=== PATIENT | male | born 1985 | race Caucasian/White ===

== ENCOUNTER 2018-02-15 05:02 | Emergency (ER) | payer BC ==
[~2018-02-15] VITALS: Ht 185.4 cm; Wt 86.3 kg
[~2018-02-15 05:02] MED LIST: SUMA100T PO
[2018-02-15 05:16] VITALS: BP 134/77
[2018-02-15] MEDS ORDERED: ketorolac trometh inj. 60 MG/2 ML VIAL IM ONE (07:05)
[2018-02-15] MEDS ORDERED: cyclobenzaprine 10mg tablet PO ONE (07:05)
[2018-02-15] MEDS ORDERED: CYCL-1 PO (07:07)
[2018-02-15] MEDS ORDERED: HYDR-569 PO (07:07)
[2018-02-15] MEDS ORDERED: NAPR-56 PO (07:07)
== END 2018-02-15 07:19 | disposition home or self-care (01) ==
LOC: ER 05:03
DX: M54.14 Radiculopathy, thoracic region (principal); M54.6 Pain in thoracic spine; Z79.899 Other long term (current) drug therapy
CPT/HCPCS: 73030; 96372; 99284; J1885

== ENCOUNTER 2021-08-02 10:33 | Emergency (ER) | payer BC ==
[~2021-08-02] VITALS: Ht 185.4 cm; Wt 85.5 kg
[~2021-08-02 10:33] MED LIST changes: +CYCL-1 PO; +HYDR-4383 PO
[2021-08-02 12:18] VITALS: BP 114/69
[2021-08-02 13:35] LABS: D-DIMER < 0.19 MG/L FEU (0-0.50)
== END 2021-08-02 13:59 | disposition home or self-care (01) ==
LOC: ER 10:35
DX: M94.0 Chondrocostal junction syndrome [Tietze] (principal)
CPT/HCPCS: 36415; 71045; 84484; 85379; 93005; 99285

== ENCOUNTER 2025-01-23 20:22 | Inpatient (IN) | payer BC ==
[~2025-01-23] VITALS: Ht 185.4 cm; Wt 90.0 kg
--- NOTE | 2025-01-23 20:53 | Physician Documentation ---
History of Present Illness ~ Chief Complaint: Heat Related Stated Complaint: HEAT RELATED Time Seen by MD: 20:53 OK to notify your PCP?: Yes Primary Medical Doctor: NONE Source: patient Mode of Arrival: POV Exam Limitations: no limitations HPI This is a very pleasant 39-year-old gentleman, generally healthy, who comes in for evaluation of potential heat exertion. He states that he had played pickleball all day in 100 degree weather, he did treat potential dehydration by drinking at gentleman on warfarin gal of electrolytes. He developed severe muscle cramping, generalized weakness and discomfort. The particular palliating or aggravating factors. He went home and attempted to treat it by drinking pickle Tal without success. Denies any chest pain or difficulty breathing. No concern for tobacco, alcohol or illicit substances use Medication Reconciliation Allergies: Coded Allergies: No Known Allergies (Unverified , 08/02/21) Scheduled Hydrocodone/Acetaminophen ([place] 5-325 Tablet), 1 TAB PO Q12H PRN Sumatriptan Succinate (Imitrex*), 1 TABLET PO UD Scheduled PRN Cyclobenzaprine* (Cyclobenzaprine*), 1 TABLET PO BID PRN for muscle spasms Past Medical History Past Surgical History: noncontributory Alcohol Use: None Lives In: Home Review of Systems ROS 10 point review of systems was performed and unless noted above in HPI is negative for acute process/complaint. Physical Exam Vital Signs: Temperature: 96.1, Source: Temporal, Heart Rate: 84, Respiratory Rate: 20, BP: 110/80, Pulse Oximetry: 98, Weight: 90.040 Oxygen Flow Rate: 0 Physical Exam GENERAL: Awake, alert, oriented, GCS 15, uncomfortable and diaphoretic appearing, answers questions, follows commands appropriately. Examined in bed 10. HEENT: Atraumatic, normocephalic, pupils equal, extraocular muscles intact, sclerae anicteric, mucus membranes moist, oropharynx is clear, no stridor. NECK: supple, full active range of motion, trachea midline, no thyromegaly, no lymphadenopathy, no JVD. CARDIOVASCULAR: regular rate/rhythm, no murmurs/gallops/rubs, Pulses are 2+ in all extremities and symmetric. Capillary refill less than 2 seconds. PULMONARY: Nonlabored, good air movement ,no respiratory distress, speaking in full sentences, clear to auscultation bilaterally, no wheezing, no ronchi, no rales, no accessory muscle use. GASTROINTESTINAL: Soft, non-tender, non-distended, normal active bowel sounds, no organomegaly, no pulsatile masses, no CVA tenderness. NEUROLOGIC: Lucid with normal mental status. Normal facial symmetry. Moves all extremities symmetrically and with purpose. No truncal ataxia. Speech is fluid without evidence of dysarthria or aphasia, no focal deficits appreciated. MUSCULOSKELETAL: There is full range of motion of all extremities. There is no joint pain or joint swelling or joint erythema. There is no muscle pain or tenderness or swelling. EXTREMITIES: warm, well-perfused, no cyanosis, no clubbing, no edema, no acute deformities. Skin: warm, dry, no rashes or lesions, no jaundice, no petechiae orpurpura. No ecchymosis. PSYCHIATRIC: Normal affect, normal insight, normal concentration. Focused exam: [] Progress Results/Orders Results/Orders Orders - KYRIE MANCIA DO Calcium Gluc 1gm/50ml Nacl,Iso (Calcium (01/23/25 22:10) * Rt Notification Q1H (01/23/25 22:07) Completed Orders - KYRIE MANCIA DO CK (01/23/25 20:53) PHOS (01/23/25 20:53) MG (01/23/25 20:53) Normal Saline 1000ml (Sodium Chloride 10 (01/23/25 20:55) Hs Troponin I W Calculations (01/23/25 20:53) CMP (01/23/25 20:53) Electrocardiogram (01/23/25 ) Normal Saline 1000ml (Sodium Chloride 10 (01/23/25 21:35) Insulin Regular, Human (Humulin R 10 Uni (01/23/25 22:10) Dextrose 50%-Water (Dextrose 50%-Water S (01/23/25 22:10) Sodium Zirconium Cyclosilicate (Lokelma (01/23/25 22:10) Albuterol 2.5mg/3ml Nebule (Proventil 2. (01/23/25 22:10) K (01/23/25 22:07) Sodium Zirconium Cyclosilicate (Lokelma (01/23/25 22:40) Cbc/Diff (01/23/25 22:52) BMP (01/23/25 22:56) CK (01/23/25 22:56) MG (01/23/25 22:57) PHOS (01/23/25 22:57) Normal Saline 1000ml (Sodium Chloride 10 (01/23/25 23:05) Medications Received in ER Medications (Trade) Dose Ordered Sig/Nadine Route PRN Reason Start Time Stop Time Status Last Admin Dose Admin (sodium chloride 1000ml IV soln) 1,000 ml ONCE ONCE IVB 01/23/25 20:55 01/23/25 20:56 DC 01/23/25 21:02 1,000 ML Sodium Chloride 1,000 ml @ 1,000 mls/hr ONCE ONCE IV 01/23/25 21:35 01/23/25 22:34 DC 01/23/25 21:39 1,000 MLS/HR Calcium Gluconate 50 ml @ 500 mls/hr Q10MIN PRN IV abnormal EKG-elevated T waves 01/23/25 22:10 01/23/25 22:24 500 MLS/HR (HumuLIN R 10 units per 0.1 ML syringe) 10 units ONCE ONCE IV 01/23/25 22:10 01/23/25 22:11 DC 01/23/25 22:27 10 UNITS (dextrose 50%-water syringe) 50 ml ONCE ONCE IV 01/23/25 22:10 01/23/25 22:11 DC 01/23/25 22:29 50 ML (LOKELMA 10gm packets) 10 gm ONCE ONCE PO 01/23/25 22:10 01/23/25 22:11 DC 01/23/25 23:06 10 GM (Proventil 2.5 MG/3ML nebule) 10 mg ONCE ONCE NEB 01/23/25 22:10 01/23/25 22:11 DC 01/23/25 23:09 10 MG (sodium chloride 1000ml IV soln) 1,000 ml ONCE ONCE IVB 01/23/25 23:05 01/23/25 23:06 DC 01/23/25 23:05 1,000 ML Vital Signs 01/23/25 01/23/25 01/23/25 01/23/25 20:38 20:57 23:03 23:16 Temp 96.1 96.1 Pulse 84 77 74 75 Resp 20 22 16 16 B/P (MAP) 110/80 123/79 (94) 119/80 (93) Pulse Ox 98 100 99 100 O2 Flow Rate 0 0 0 01/23/25 01/24/25 01/24/25 23:21 00:16 00:23 Pulse 73 91 Resp 17 16 Pulse Ox 100 100 O2 Flow Rate 8.0 Laboratory Tests Test 01/23/25 20:54 01/23/25 22:17 01/23/25 22:57 CBC Comment Sodium Level 140 144 Potassium Level 8.1 *H 6.4 *H 5.1 Chloride Level 104 110 H Carbon Dioxide Level 25.1 29.6 Anion Gap 11 4 L Blood Urea Nitrogen 20 H 18 Creatinine 2.37 H 1.72 H Estimated GFR/1.73 m2 31 44 BUN/Creatinine Ratio 8.4 L 10.5 Glucose Level 112 H 94 Calcium Level 11.7 H 9.6 Phosphorus Level 0.7 *L 1.1 *L Magnesium Level 2.8 H 2.7 H Total Bilirubin 1.3 H Aspartate Amino Transf (AST/SGOT) 38 H Alanine Aminotransferase (ALT/SGPT) 51 Alkaline Phosphatase 76 Total Creatine Kinase 387 H 292 Troponin I High Sensitivity 58 Total Protein 9.5 H Albumin 6.3 H 4.4 Globulin 3.2 Albumin/Globulin Ratio 2.0 H Chemistry Comments White Blood Count 11.9 H Red Blood Count 5.73 Hemoglobin 17.9 Hematocrit 51.7 Mean Corpuscular Volume 90.2 Mean Corpuscular Hemoglobin 31.2 H Mean Corpuscular Hemoglobin Concent 34.6 Red Cell Distribution Width 13.4 Platelet Count 175 Mean Platelet Volume 9.2 Neutrophils (%) (Auto) 85.2 H Lymphocytes (%) (Auto) 6.9 L Monocytes (%) (Auto) 7.5 Eosinophils (%) (Auto) 0.2 Basophils (%) (Auto) 0.2 Neutrophils # (Auto) 10.2 H Lymphocytes # (Auto) 0.8 L Monocytes # (Auto) 0.9 Eosinophils # (Auto) 0.0 Basophils # (Auto) 0.0 EKG/XRAY/CT/US/VASC/MRI EKG : Additional Comment EKG was obtained and interpreted by myself shows sinus rhythm of 74, normal NC interval, narrow QRS, no QT prolongation, normal axis, markedly on tall peaked T-waves concerning for hyperkalemia. No STEMI Medical Decision Making Findings Facility Status: ED Holds, RME process The plan was discussed with the patient, who demonstrates clear understanding of the plan and is in agreement with the plan unless otherwise noted in the chart. All questions have been answered, all concerns were addressed unless otherwise documented. I was available throughout their ED stay for frequent reassessment and questions. Differential Diagnoses (considered and possible or likely): [Dehydration, electrolyte derangement, heat exhaustion, heat stroke, heat cramps, rhabdomyolysis, less likely ACS] ??Differential Diagnoses (considered and unlikely, not requiring evaluation currently): [No evidence of lateralizing signs to suspect a stroke] MDM Data Please see [facility] for the following: Independent Historians and external Records Review. Historian: [Patient] Independent Historians: ?[Non] Medication Management: [Reviewed medication list] Social History and determinants: [Reviewed] Please see the body of the note for the following: Any independent interpretations of ECG, imaging studies. All vitals signs/haemodynamics, ordered tests were independently reviewed and interpreted by myself. Nursing triage complaint and vitals reviewed, additional nursing notes were reviewed as available and I agree unless otherwise noted or documented in contradiction in the chart Vital Signs: Independently reviewed Labs: Independently interpreted Imaging: Independently interpreted Old Medical Records: Independently reviewed, see [facility] for relevant summary and information Pulse Oximetry: [97%] interpreted as [normal on room air] by me [Weapons Engineer: [Regular Rate, Regular rhythm, no ectopy, NSR] reviewed and interpreted by me] Additionally notably showing: [Hemodynamically he is stable. His laboratory workup notable for markedly elevated potassium of 8.1. It improved with the fluid dilution to 6.4 and with the treatment down to 5.1. He did have EKG changes concerning for hyperkalemia. CK was elevated not meeting criteria for rhabdomyolysis. He does have acute kidney injury.] Tests considered but not ordered include: [Imaging does not appear to be necessary at this time] Social Determinants of Health Impact: Patient was evaluated in [facility] [place] access to healthcare due to below par ratio of patient to medical providers. [] Comorbid Conditions Impacting Present Evaluation and Care/Treatment: [Non] Management Discussions with other Healthcare Providers: [Hospitalist regarding admission] Treatment and Disposition Medication Management (Given or considered): [Hyperkalemia treatment]. See EMR for details Consideration for Hospitalization/Escalation/Deescalation of Care: Admission for observation has been considered, is necessary for further management of his electrolyte derangement with a life-threatening hyperkalemia and acute kidney injury ?ED Course:?[Improved and no longer requires ICU] ?Shared decision making:?[] Code status:?FULL Please see the full Electronic Medical Record for full details of nursing documentation, medications list, other records of complete past medical history and conditions, vital signs, laboratory studies, and any radiologic study interpretations by radiologists. Portions of this note were completed using [employer] dictation software and as a result there may exist minor errors in spelling. I have reviewed elements of past family and social history and agree as included in note. Departure Disposition: ADMITTED INPATIENT Admitted to Inpatient Unit: to hospitalist Impression: Primary Impression: Heat exhaustion Additional Impressions: Heat cramps Hyperkalemia Elevated CK Acute kidney injury Referrals: NO PRIMARY CARE PROVIDER (PCP) Education Educated: Patient, Family Educated regarding: diagnosis, treatment, prognosis, need for follow up Critical Care Note Critical Care Note CRITICAL CARE TIME: [40 ] minutes Treatments/Evaluations: Close monitoring and treatment of unstable vital signs, cardiorespiratory, and neurologic status, while maintaining tight balance of fluid, respiratory, and cardiac interventions. This time includes discussing the case with the patient and the patients family. This time does not include all procedures stated elsewhere in this record. This time also includes reviewing old records, labs and radiological studies. This time includes examining and re- examining the patient. Additionally, this time also includes arranging care with admitting and consulting physicians. Signature Scribe Signature: No scribe Attestation: This note accurately reflects clinical decisions, work performed by myself, DO HILDA Ledbetter [facility] January 23, 2025 20:53 KYRIE MANCIA DO January 23, 2025 21:00
--- NOTE | 2025-01-23 21:01 | ELECTROCARDIOGRAPH REPORT ---
[facility] Test Date: 2025-01-23 Test Time: 20:58:41 Pat Name: LIONEL ARMENDARIZ Department: [facility] Patient ID: 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 Reading MD: Dr. Shamar Lindsey Measurements Intervals [place] Rate: 74 P: 70 VA: 138 QRS: 71 QRSD: 105 T: 48 QT: 373 QTc: 414 Interpretive Statements Sinus rhythm Left atrial enlargement ST elev, probable normal early repol pattern Baseline wander in lead(s) V3 Electronically Signed On 01-24-2025 6:34:[address] Shamar Lindsey Please click the below link to view image of tracing.
[2025-01-23] MEDS: normal saline 1000ML IV soln IVB ONE ×2 (21:02→23:05)
[2025-01-23] MEDS: normal saline 1000ml 1,000 ML IV ONE (21:39)
[2025-01-23 21:59] LABS: ALANINE AMINOTRANSFERASE 51 U/L (12-78); ALBUMIN 6.3 G/DL (3.4-5.0); ALKALINE PHOSPHATASE 76 IU/L (46-116); ANION GAP 11 (8-16); ASPARTATE AMINO TRANSFERASE 38 U/L (10-37); BILIRUBIN,TOTAL 1.3 MG/DL (0.1-1.0); BLOOD UREA NITROGEN 20 MG/DL (7-18); BUN/CREATININE RATIO 8.4 (10.0-20.0); CALCIUM 11.7 MG/DL (8.5-10.1); CHLORIDE 104 MMOL/L (99-107); CREATINE KINASE 387 U/L (39-308); CREATININE 2.37 MG/DL (0.60-1.10); GLUCOSE 112 MG/DL (70-104); MAGNESIUM 2.8 MG/DL (1.5-2.4); SODIUM 140 MMOL/L (135-145); TOTAL CARBON DIOXIDE 25.1 MMOL/L (24-32); TOTAL PROTEIN 9.5 G/DL (6.4-8.2); eCRCL 47 ML/MIN; eGFR 31 ML/MIN
[2025-01-23 22:05] LABS: PHOSPHORUS 0.7 MG/DL (2.3-4.5); POTASSIUM 8.1 MMOL/L (3.5-5.1)
[2025-01-23] MEDS: CALCIUM GLUC 1gm/50ml NACL,iso 50 ML IV PRN (22:24)
[2025-01-23] MEDS: insulin regular, human 10 units/0.1 ml syringe IV ONE (22:27)
[2025-01-23] MEDS: dextrose 50%-water 50ml dispensing syringe IV ONE (22:29)
[2025-01-23] MEDS: SODIUM ZIRCONIUM CYCLOSILICATE 10 GM POWD.PACK PO ONE (23:06)
[2025-01-23] MEDS: albuterol 2.5 MG/3 ML nebule NEB ONE (23:09)
[2025-01-23 23:11] LABS: BASOPHILS % (AUTO) 0.2 % (0-1); EOSINOPHILS % (AUTO) 0.2 % (0-6); HEMATOCRIT 51.7 % (42.0-52.0); HEMOGLOBIN 17.9 g/dl (14.0-17.9); LYMPHOCYTES # (AUTO) 0.8 X10'3 (1.1-4.8); LYMPHOCYTES % (AUTO) 6.9 % (21-51); MEAN CORPUSCULAR HEMOGLOBIN 31.2 PG (27.0-31.0); MEAN CORPUSCULAR HGB CONC 34.6 g/dL (33.0-36.5); MEAN CORPUSCULAR VOLUME 90.2 FL (78-98); MEAN PLATELET VOLUME 9.2 FL (7.4-10.4); MONOCYTES # (AUTO) 0.9 X10'3 (0-0.9); MONOCYTES % (AUTO) 7.5 % (2-12); NEUTROPHILS # (AUTO) 10.2 X10'3 (1.8-7.7); NEUTROPHILS % (AUTO) 85.2 % (42-75); PLATELET COUNT 175 X10'3 (140-440); RED BLOOD COUNT 5.73 X10'6 (4.70-6.10); RED CELL DISTRIBUTION WIDTH 13.4 % (11.5-14.5); WHITE BLOOD COUNT 11.9 X10'3 (4.5-11.0)
[2025-01-23] MEDS: SODIUM ZIRCONIUM CYCLOSILICATE 10 GM POWD.PACK ONE (23:11)
[2025-01-23 23:16] VITALS: PULSE 75; RESP 16; O2SAT 100
[2025-01-23 23:21] VITALS: PULSE 73; RESP 17; O2SAT 100
[2025-01-23 23:53] LABS: ALBUMIN 4.4 G/DL (3.4-5.0); ANION GAP 4 (8-16); BLOOD UREA NITROGEN 18 MG/DL (7-18); BUN/CREATININE RATIO 10.5 (10.0-20.0); CALCIUM 9.6 MG/DL (8.5-10.1); CHLORIDE 110 MMOL/L (99-107); CREATINE KINASE 292 U/L (39-308); CREATININE 1.72 MG/DL (0.60-1.10); GLUCOSE 94 MG/DL (70-104); MAGNESIUM 2.7 MG/DL (1.5-2.4); POTASSIUM 5.1 MMOL/L (3.5-5.1); SODIUM 144 MMOL/L (135-145); TOTAL CARBON DIOXIDE 29.6 MMOL/L (24-32); eCRCL 65 ML/MIN; eGFR 44 ML/MIN
[2025-01-24] VITALS (8 sets, daily range): BP systolic 110–130; BP diastolic 64–74; PULSE 68–91; RESP 8–18; TEMP 97.3–98.2; O2SAT 96–100
[2025-01-24 00:03] LABS: PHOSPHORUS 1.1 MG/DL (2.3-4.5)
[2025-01-24] MEDS ORDERED: NO HOME MEDS (00:33)
--- NOTE | 2025-01-24 00:44 | ELECTROCARDIOGRAPH REPORT ---
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 Shamar Lindsey Measurements Intervals [place] Rate: 82 P: 54 CA: 136 QRS: 52 QRSD: 101 T: 33 QT: 396 QTc: 463 Interpretive Statements Sinus rhythm Probable left atrial enlargement ST elev, probable normal early repol pattern Electronically Signed On 01-24-2025 6:34:[address] Shamar Lindsey Please click the below link to view image of tracing.
[2025-01-24] MEDS ORDERED: acetaminophen 325mg tablet PO PRN (00:50)
[2025-01-24] MEDS ORDERED: potassium Cl 40MEQ/1/2NS 520ml 520 ML IV PRN (00:50)
[2025-01-24] MEDS ORDERED: magnesium Cl slow-release 64mg tablet PO PRN (00:50)
[2025-01-24] MEDS ORDERED: magnesium hydroxide 30ml (MOM) UD suspension PO PRN (00:50)
[2025-01-24] MEDS ORDERED: magnesium sulf-water 2g/50mL 50 ML IV PRN (00:50)
[2025-01-24] MEDS ORDERED: ondansetron/PF 4mg/2ml inj IV PRN (00:50)
[2025-01-24] MEDS ORDERED: mag hydrox/Alum hydrox/simeth 30ml oral suspension PO PRN (00:50)
[2025-01-24] MEDS ORDERED: potassium Cl 20 mEq SR tablet PO PRN ×2 (00:50)
[2025-01-24] MEDS ORDERED: magnesium sulf-water 4G/100mL 100 ML IV PRN (00:50)
[2025-01-24] MEDS: normal saline 1000ml 1,000 ML IV SCH (01:05)
--- NOTE | 2025-01-24 01:21 | HISTORY AND PHYSICAL-Residence ---
History & Physical Providers to CC Resident Creating Document: ALTON MILIAN RES ~ History of Present Illness Primary Medical Doctor: NONE Reason for Admit\Complaint: Hyperkalemia, NAMITA History of Present Illness 39 years old male, generally healthy presented to the ED with profound sweating and muscle cramp. Patient reported he had played pickleball all day in 100 degree weather and h felt so dehydrated and drink a lot of water and electrolyte afterward. However he reported shortness of breath and dizziness lightheaded and lot of muscle cramping and generalized weakness nausea and vomiting that decided to visit hospital. He reported he used to play outside during the summer and he did not have any symptoms before. Allergies: Coded Allergies: montelukast (Verified Allergy, Mild, flu like symptoms, 01/24/25) Home Medications Home Medications Active [place] 5-325 Tablet (Hydrocodone/Acetaminophen) 1 Each Tablet 1 Tab PO Q12H PRN 5 Days Cyclobenzaprine* (Cyclobenzaprine HCl) 10 Mg Tablet 1 Tablet PO BID PRN Imitrex* (Sumatriptan Succinate) 100 Mg Tablet 1 Tablet PO UD Reported No Home Medications (Home Med List) Each Past Medical History Past Medical History Low testosterone Past Surgical History Surgical History Comment Noncontributory Family History Family History: Patient reports no known family medical history. Past Social History Smoking: Non-Smoker Alcohol Use: Occasionally (5-6 drink on the weekend) Drug Use: Marijuana (Occasionally pill or vaping) Lives In: Home ROS ROS The history of present illness included a review of system, which yielded relevant positives and negatives Exam Vitals: Vital Signs Date Time Temp Pulse Resp B/P (MAP) Pulse Ox O2 Delivery O2 Flow Rate FiO2 01/24/25 00:24 16 01/24/25 00:23 8.0 01/24/25 00:16 91 100 01/23/25 20:57 96.1 General: General: Awake and Alert, no acute distress. HEENT: Conjunctiva pink, Sclera clear, Mucus Membranes moist. Neck: Supple without masses and tenderness. Resp: Lungs clear to auscultation bilaterally. Heart: Regular Rate and rhythm, normal S1 and S2 without murmur Abdomen: Soft and non tender no organomegaly Extremities: No cyanosis,clubbing or edema. Skin: Warm and Dry. Neurological: Speech is clear, alert, and oriented x 4, no gross neurological deficits Diagnostic Data Last Recorded Lab Results: 01/23/25225601/23/252256 Advance Care Planning Advanced Care plannin - 30 Minutes Additional Plan 39-year-old male generally healthy presented with muscle cramping nausea vomiting profound sweating after playing pickle ball outside in the heat Dehydration Acute kidney failure Following strenuous exercise Electrolyte imbalance including hypokalemia, hypophosphatemia, hypomagnesemia Mildly elevated creatine kinase, some possibility of rhabdomyolysis, UA ordered for evaluation of RBC and hematuria Elevated creatinine kinase trending down with hydration Initial creatinine was 2.37, with BUN 20, improved with hydration Continue hydration 100 mL/hour Hyperkalemia with tall T waves on EKG changes Secondary to NAMITA/dehydration Troponin negative Patient received 3 L of normal saline, calcium gluconate, insulin, dextrose, Lokelma, albuterol Initial potassium was 8.1 trending down to 6.4 and 5.1. Severe Hypophosphatemia Due to elevated potassium we will start sodium phosphate for correction We will repeat potassium in a.m. Mild Leukocytosis No sign of infection, chest x-ray and UA is pending, continue monitoring Code Status: Full DVT prophylaxis: SCDs Analgesia/sedation: Tylenol Line/tube: Peripheral GI prophylaxis: None Nutrition: Renal Prognosis: Guarded Disposition: Continue monitoring patient in ortho floor with telemetry Alton Milian MD Internal Medicine Resident 39 yr old man with likely exertion/heat induce rhabdomyolysis presenting with hyperkalemia NAMITA and dehydration will embark on aggressive hydration -150cc/hr after boluses and also consult nephro recheck electrolytes etc needs close monitoring Date of Service: Jan 24, 2025 Billing Provider: EFRAIN SOLIS MD, ELAHE, RES Jan 24, 2025 01:21 EFRAIN SOLIS MD Jan 24, 2025 07:44
--- NOTE | 2025-01-24 01:53 | RADIOLOGY REPORT ---
CHEST RADIOGRAPH Indication: Shortness of breaths Technique: Single frontal view of the chest was obtained COMPARISON: CHEST,SINGLE VIEW on DOS: 08/02/21 FINDINGS: Lines and Tubes: None Lungs: Clear Pleura: No effusion. No pneumothorax. Cardiomediastinal contours: Unremarkable IMPRESSION: No abnormality demonstrated.
[2025-01-24] MEDS ORDERED: sodium phosphate inj. 15 MMOL in dextrose 5%-water 250 ML IV PRN (03:55)
[2025-01-24] MEDS ORDERED: sodium phosphate inj. 30 MMOL in dextrose 5%-water 250 ML IV PRN (03:55)
[2025-01-24] MEDS: dextrose 50%-water 50ml dispensing syringe IV ONE (04:49)
[2025-01-24] MEDS: insulin regular, human 10 units/0.1 ml syringe IV ONE (04:52)
[2025-01-24] MEDS ORDERED: glucagon, human recombinant 1mg kit SUBCUT PRN (06:15)
[2025-01-24] MEDS ORDERED: DEXTROSE 15 GM of carb/4 tabs (each vial/BOTTLE has 4 tablets) PO PRN (06:15)
[2025-01-24] MEDS ORDERED: dextrose 50%-water 50ml dispensing syringe IV PRN ×2 (06:15)
[2025-01-24] MEDS: DEXTROSE 15 GM of carb/4 tabs (each vial/BOTTLE has 4 tablets) PO PRN (06:55)
[2025-01-24] MEDS: docusate sod 100mg capsule PO SCH (08:00)
[2025-01-24] MEDS: K and/or MAG REPLACEMENT MC SCH (08:00)
[2025-01-24 09:49] LABS: PHOSPHORUS 2.9 MG/DL (2.3-4.5); POTASSIUM 4.1 MMOL/L (3.5-5.1)
[2025-01-24] MEDS: albuterol 2.5 MG/3 ML nebule NEB ONE (10:13)
[2025-01-24 11:11] LABS: ALBUMIN 3.6 G/DL (3.4-5.0); ANION GAP 5 (8-16); BLOOD UREA NITROGEN 15 MG/DL (7-18); BUN/CREATININE RATIO 12.8 (10.0-20.0); CALCIUM 8.9 MG/DL (8.5-10.1); CHLORIDE 107 MMOL/L (99-107); CREATININE 1.17 MG/DL (0.60-1.10); GLUCOSE 121 MG/DL (70-104); POTASSIUM 3.7 MMOL/L (3.5-5.1); SODIUM 141 MMOL/L (135-145); TOTAL CARBON DIOXIDE 29.1 MMOL/L (24-32); eCRCL 96 ML/MIN; eGFR 69 ML/MIN
== END 2025-01-24 17:45 | disposition home or self-care (01) | DRG 558 ==
LOC: ER 20:23 → ED HOLD 01-24 00:50 → ORTHO 4S 01-24 01:45 → PCU 3S 01-24 04:32
PROVIDERS: ADMIT Internal Medicine; ATTEND Internal Medicine
DX: M62.82 Rhabdomyolysis (principal); N17.9 Acute kidney failure, unspecified; T67.2XXA Heat cramp, initial encounter; T67.5XXA Heat exhaustion, unspecified, initial encounter; E86.0 Dehydration; E87.5 Hyperkalemia; X30.XXXA Exposure to excessive natural heat, initial encounter; E87.6 Hypokalemia; E83.39 Other disorders of phosphorus metabolism; E83.42 Hypomagnesemia; D72.829 Elevated white blood cell count, unspecified; Z88.8 Allergy status to other drugs, medicaments and biological substances; Z79.899 Other long term (current) drug therapy; X58.XXXA Exposure to other specified factors, initial encounter; Y93.89 Activity, other specified; Y92.89 Other specified places as the place of occurrence of the external cause; Y99.8 Other external cause status
CPT/HCPCS: 36415; 71045; 80048; 80053; 82550; 82948; 83735; 84100; 84132; 84484; 85025; 87081; 93005; 94640; 94760; G0378; J0610; J1815; J3490; J7030